=== PATIENT | female | born 1975 | race Caucasian/White ===

== ENCOUNTER 2017-05-19 15:28 | Emergency (ER) | payer BC ==
[2017-05-19 16:08] LABS: BASOPHILS 0.6 % (0.0-2.0); EOSINOPHILS 3.1 % (0.0-6.0); EOSINOPHILS# 0.2 X 10^3uL (0.0-0.4); HEMATOCRIT 39.5 % (36.0-48.0); HEMOGLOBIN 13.4 g/dL (12.0-16.0); LYMPHOCYTES 21.5 % (20.0-40.0); LYMPHOCYTES# 1.3 X 10^3uL (0.8-3.8); MEAN CELL VOLUME 86.2 fL (80.0-100.0); MEAN CORPUSCULAR HEMOGLOBIN 29.3 pg (29.0-35.0); MEAN PLATELET VOLUME 8.2 fL (7.4-10.4); MONOCYTES 6.7 % (2.0-10.0); MONOCYTES# 0.4 X 10^3uL (0.2-1.0); NEUTROPHILS 68.1 % (54.0-75.0); NEUTROPHILS# 4.2 X 10^3uL (2.6-6.7); PLATELET COUNT 195 X 10^3uL (130-440); RED BLOOD COUNT 4.58 X 10^6uL (4.20-6.10); RED CELL DISTRIBUTION WIDTH 12.7 % (11.5-14.5); WHITE BLOOD COUNT 6.1 X 10^3uL (3.9-10.7)
[2017-05-19] MEDS ORDERED: ACETAMINOPHEN 1,000 MG/100 ML VIAL IV ONE (16:13)
[2017-05-19 16:15] LABS: BLOOD UREA NITROGEN 16 mg/dL (7-17); CALCIUM 9.6 mg/dL (8.4-10.2); CHLORIDE 102 mmol/L (98-107); EST GLOMERULAR FILTRATION RATE > 60 mL/min; GLUCOSE 128 mg/dL (70-100); POTASSIUM 3.6 mmol/L (3.5-5.1); SODIUM 138 mmol/L (137-145)
--- NOTE | 2017-05-19 18:27 | ER NURSING DOCUMENTATION ---
Nurse's Notes [facility] Name:Gisel Horner Age:42 yrs Sex:Female :1975 Arrival Date:05/19/2017 Time:15:28 Bed4 Private MD: Diagnosis:Acute Headache;Dehydration Presentation: 05/19 15:44 Presenting complaint: Patient states: pt does not feel well. she feels weak, nauseated st she states she is seeing doubles and stumbling. Presenting complaint: Patient states: pt states she is afraid of flying so she may have taken 5 mg of Xanax yesterday in a 2 hour period. Transition of care: patient was not received from another setting of care. 15:44 Acuity: AURA 3 st 15:44 Method Of Arrival: Private Vehicle st Triage Assessment: 15:47 General: Appears drowsy. Behavior is cooperative, drowsy. Pain: Denies pain. EENT: st Reports on and off double vision today.. Cardiovascular: No deficits noted. Respiratory: No deficits noted. GI: Reports nausea, vomiting. Musculoskeletal: Reports generalized weakness. Historical: - Allergies: No known drug Allergies; - Tetanus: < 10 years. - Ebola Screening: : Patient denies exposure to infectious person. Patient denies travel to an Ebola-affected area in the 21 days before illness onset. . - Social history: Smoking status: Patient states was never smoker of tobacco. Patient/guardian denies using alcohol, marijuana. Screenin:50 Infectious Disease Risk None. Abuse screen: Denies threats or abuse. Denies injuries st from another. pt feels safe at home. Nutritional screening: No deficits noted. Assessment: 16:34 General: pt sleeping. st 17:34 General: pt continues to sleep.. st Vital Signs: 15:49 BP 114 / 80; Pulse 84; Pulse Ox 93% on R/A; Pain 0/10; st 18:01 BP 125 / 77; Pulse 76; Resp 16; Pulse Ox 92% ; jt Junior Coma Score: 18:11 Eye Response: spontaneous(4). Verbal Response: oriented(5). Motor Response: obeys sc commands(6). Total: 15. ED Course: 15:31 Patient arrived in ED. ama 15:38 Moses Fisher MD is Attending Physician. sc 15:44 Twombly, Summer, RN is Primary Nurse. st 15:[address] 15:50 Valuables Remains with patient. st 15:56 Inserted peripheral IV: 20 gauge in right antecubital area and blood collected. st 16:04 Noise minimized. Lights dimmed. Warm blanket given. st Administered Medications: 15:58 Drug: NS 0.9% 1000 ml; Route: IV; Rate: bolus; Site: right antecubital; st 16:35 Follow up: IV Status: Completed infusion; IV Intake: 1000ml st 16:04 Drug: Ofirmev ; MAX of 1000 mg, give 20 mg/kg; Route: IV; Rate: calculated rate; st Infused Over: 15 mins; Site: right antecubital; 16:20 Follow up: IV Status: Completed infusion; IV Intake: 1000ml st 16:35 Drug: NS 0.9% 1000 ml; Route: IV; Rate: bolus; Site: right antecubital; st 17:35 Follow up: IV Status: Completed infusion; IV Intake: 1000ml st Intake: 16:20 IV: 1000ml; Total: 1000ml. st 16:35 IV: 1000ml; Total: 2000ml. st 17:35 IV: 1000ml; Total: 3000ml. st Outcome: 18:03 Discharge ordered by . tx 18:09 Discharged to home ambulatory. st 18:09 Condition: improved 18:09 Discharge instructions given to patient, Instructed on discharge instructions, follow up and referral plans. 18:09 IV D/Han 18:26 Patient left the ED. [facility] 05/20 09:17 Discharge F/U Call: Unable to reach: no answer st Signatures: Alka Agustin RN Moses Woodson MD MD sc Kruger, Meg RN RN [facility] Jace Young, Madalyn Borja
--- NOTE | 2017-05-19 18:27 | ER PHYSICIAN DOCUMENTATION ---
Physician Documentation [facility] Name:Gisel Horner Age:42 yrs Sex:Female :1975 Arrival Date:05/19/2017 Time:15:28 Bed4 Private MD: Moses Adair Disposition: 05/19/17 18:03 Discharged to Home/Self Care. Impression: Acute Headache, Dehydration. - Condition is Good. - Discharge Instructions: DEHYDRATION (7y-Adult), HEADACHE, Unspecified. - Medical Reconciliation form form. - Follow up: Private Physician; When: As needed; Reason: Worsening of condition. - Problem is an acute exacerbation. - Symptoms are resolved. HPI: 05/19 18:03 This 42 yrs old Female presents to ER via Private Vehicle with complaints of sc Nausea. 18:03 The patient presents to the emergency department with nausea, with vomiting. sc 18:04 The patient complains of pain to the top of head and forehead. The patient describes sc the headache as aching, constant. Onset: The symptoms/episode began/occurred yesterday. Associated signs and symptoms: Pertinent positives: malaise, nausea. Severity of symptoms: At its worst the pain was moderate. Headache History: The patient has had previous headaches and this one is similar to previous episodes. took several xanax yesterday, overworked, just starting sinus abx and new to altitude, very dehydrated. Historical: - Allergies: No known drug Allergies; - Tetanus: < 10 years. - Ebola Screening: : Patient denies exposure to infectious person. Patient denies travel to an Ebola-affected area in the 21 days before illness onset. . - Social history: Smoking status: Patient states was never smoker of tobacco. Patient/guardian denies using alcohol, marijuana. ROS: 18:05 Constitutional: Negative for fever, chills, and weight loss. sc Eyes: Negative for injury, pain, redness, and discharge. ENT: Negative for injury, pain, and discharge. Neck: Negative for injury, pain, and swelling. Cardiovascular: Negative for chest pain, palpitations, and edema. Respiratory: Negative for shortness of breath, cough, wheezing, and pleuritic chest pain. Abdomen/GI: Negative for abdominal pain, nausea, vomiting, diarrhea, and constipation. 18:05 Back: Negative for injury and pain. sc 18:05 Neuro: Positive for headache, Negative for altered mental status, dizziness, gait disturbance, hearing loss, loss of consciousness, numbness. Exam: Constitutional: This is a well developed, well nourished patient who is awake, alert, and in no acute distress. 18:06 Head/Face: Normocephalic, atraumatic. sc Neck: Trachea midline, no thyromegaly or masses palpated, and no cervical lymphadenopathy. Supple, full range of motion without nuchal rigidity, or vertebral point tenderness. No meningismus. Cardiovascular: Regular rate and rhythm with a normal S1 and S2. No gallops, murmurs, or rubs. Normal PMI, no JVD. No pulse deficits. 18:06 Respiratory: Lungs have equal breath sounds bilaterally, clear to auscultation and percussion. No rales, rhonchi or wheezes noted. No increased work of breathing, no retractions or nasal flaring. 18:06 Eyes: Pupils: equal, round, and reactive to light and accomodation. 18:06 ENT: Mouth: Oral mucosa: dry. 18:06 Skin: Turgor: is poor. 18:06 Neuro: Orientation: is normal. Vital Signs: 15:49 BP 114 / 80; Pulse 84; Pulse Ox 93% on R/A; Pain 0/10; st 18:01 BP 125 / 77; Pulse 76; Resp 16; Pulse Ox 92% ; jt Junior Coma Score: 18:11 Eye Response: spontaneous(4). Verbal Response: oriented(5). Motor Response: obeys ia commands(6). Total: 15. MDM: 15:38 Patient medically screened. sc 18:11 Differential diagnosis: migraine, tension headache, vasomotor headache. Neurological sc re-evaluation: normal neurological exam including cranial nerves, orientation, mentation, motor and sensory exam, cerebellar testing, GCS normal, and normal gait. Data reviewed: vital signs, nurses notes, and as a result, I will discharge patient, administer IV fluids. Counseling: I had a detailed discussion with the patient and/or guardian regarding: the historical points, exam findings, and any diagnostic results supporting the discharge/admit diagnosis, lab results, radiology results. 05/19 16:18 Order name: BASIC METABOLIC PANEL EDMS 05/19 16:30 Interpretation: Normal. sc 05/19 16:20 Order name: CBC AUTO DIF, MDIF/RMOR IF IND EDMS 05/19 16:30 Interpretation: Normal. sc 05/19 16:32 Order name: HCG, SERUM; Complete Time: 16:49 EDMS 05/19 16:49 Interpretation: Normal. ia Dispensed Medications: 15:58 Drug: NS 0.9% 1000 ml; Route: IV; Rate: bolus; Site: right antecubital; st 16:35 Follow up: IV Status: Completed infusion; IV Intake: 1000ml st 16:04 Drug: Ofirmev ; MAX of 1000 mg, give 20 mg/kg; Route: IV; Rate: calculated rate; st Infused Over: 15 mins; Site: right antecubital; 16:20 Follow up: IV Status: Completed infusion; IV Intake: 1000ml st 16:35 Drug: NS 0.9% 1000 ml; Route: IV; Rate: bolus; Site: right antecubital; st 17:35 Follow up: IV Status: Completed infusion; IV Intake: 1000ml st Signatures: Alka Agustin RN Msoes Woodson MD MD sc Kruger, Meg, RN RN mk2
== END 2017-05-19 18:27 | disposition home or self-care (01) ==
LOC: ER 15:28
DX: R51 Headache (principal); E86.0 Dehydration; R11.2 Nausea with vomiting, unspecified
CPT/HCPCS: 80048; 84703; 85025; 96361; 96365; 99283